=== PATIENT | female | born 1980 | race Asian ===

== ENCOUNTER 2024-11-25 11:49 | Emergency (ER) | payer OTHER, SELFPAY ==
[2024-11-25 11:54] VITALS: BMI 22.4
[2024-11-25 11:55] VITALS: BP 156/102; BP 176/86; PULSE 72; RESP 18; TEMP 37.2; O2SAT 98
--- NOTE | 2024-11-25 11:57 | EKG_ITS ---
[facility] Test Date: 2024-11-25 Pat Name: DANE DOBSON Department: Room: - Gender: Female Procurement Consultant: : 1980 Requested By: Nicolas Forde (LEILA) Order Number: [id number] Reading MD: Nicolas Forde (ADVERTISING ANALYST) Measurements Intervals [place] Rate: 77 P: 48 AL: 209 QRS: 27 QRSD: 89 T: 9 QT: 383 QTc: 435 Interpretive Statements SINUS RHYTHM NONSPECIFIC T-WAVE ABNORMALITY No previous ECG available for comparison /store/S0/[id number]
--- NOTE | 2024-11-25 11:57 | XR_ITS ---
Examination: CT brain head without contrast. 2-D sagittal coronal reconstructions Date and time of exam:November 25, 9024, 1249 hours INDICATIONS: Headache dizziness today CTDI: vol (mGy):49.5 DLP: (mGycm):972 Technique: Multiple CT axial sections of the brain have been obtained, 5 mm slice thickness. Contrast has not been administered. 2-D sagittal, coronal reconstructions have been obtained Low dose protocols were performed. One or more of the following dose reduction techniques were used; automated exposure control, adjustment of the mA and/or KV according to patient size, use of iterative reconstruction technique. Findings: No significant ventricular enlargement. Intra-axial or extra-axial hemorrhage density is not seen. No mass effect or midline shift Basal cisterns are not remarkable. Fourth ventricle is midline. Cranial vault intact. Impression: Negative for acute hemorrhage, mass effect or midline shift Advise clinical correlation follow up accordingly
--- NOTE | 2024-11-25 11:57 | XR_ITS ---
Examination: PA lateral chest 2 views TECHNIQUE: Upright PA and lateral chest 2 views Date and time: November 25, 2024: 39 hours INDICATIONS: Dizziness weakness shortness of breath today. FINDINGS: Mild enlargement left ventricle. No pneumonia or pulmonary edema. The osseous structures are intact IMPRESSION: No pneumonia or pulmonary edema
--- NOTE | 2024-11-25 12:03 | PD.EDRME ---
Rapid Medical Screening Exam RME Arrival date/time: 11/25/24 11:49 44-year-old female presents to the emergency department today for complaints of dizziness Chief Complaint: Dizziness Vital signs: Vital Signs Temperature 98.9 F 11/25/24 11:55 Pulse Rate 72 11/25/24 11:55 Respiratory Rate 18 11/25/24 11:55 Blood Pressure 176/86 H 11/25/24 11:55 Pulse Oximetry (%) 98 11/25/24 11:55 Oxygen Delivery Method Room Air 11/25/24 11:55
[2024-11-25] MEDS: MECLIZINE HCL 25 MG TABLET 50 MG PO (12:08)
[2024-11-25 12:21] LABS: Basophils # (Auto) 0.1 Thou/mm3 (0.0-0.2); Basophils % (Auto) 1 % (0-2.5); Eosinophils # (Auto) 0.3 Thou/mm3 (0.0-0.5); Eosinophils % (Auto) 4 % (0-10); Hematocrit 38.0 % (36.0-46.0); Hemoglobin 11.7 g/dL (12.0-16.0); Immature Granulocytes Auto 0.02 Thou/mm3 (0.00-0.00); Lymphocytes # (Auto) 2.7 Thou/mm3 (1.0-4.8); Lymphocytes % (Auto) 41 % (10-50); Mean Corpuscular HGB Conc 30.8 g/dl (31.0-37.0); Mean Corpuscular Hemoglobin 24.3 pg (25.0-35.0); Mean Corpuscular Volume 79 fL (80-100); Monocytes # (Auto) 0.7 Thou/mm3 (0.0-0.8); Monocytes % (Auto) 10 % (0-12); Neutrophils # (Auto) 3.0 Thou/mm3 (1.8-7.7); Neutrophils % (Auto) 45 % (37-80); Nucleated Red Blood Cell # 0.00 Thou/mm3 (0.00-0.00); Nucleated Red Blood Cell % 0 /100 WBC (0); Platelet Count 329 Thou/mm3 (140-440); RDW Standard Deviation 44.2 fL (36.4-46.3); Red Blood Count 4.81 Miln/mm3 (4.00-5.20); White Blood Count 6.7 Thou/mm3 (3.6-11.0)
[2024-11-25 12:50] LABS: HCG Qualitative,Urine Negative
[2024-11-25 13:11] LABS: Alanine Aminotransferase 13 U/L (10-49); Albumin, Serum 4.7 gm/dL (3.5-5.0); Albumin/Globulin Ratio 1.6 (1.2-2.2); Alkaline Phosphatase 69 U/L (46-116); Anion Gap 9 (7-16); Aspartate Amino Transferase 17 U/L (0-34); BUN/Creatinine Ratio 14 Ratio (12-20); Bilirubin,Total 0.5 mg/dL (0.3-1.2); Blood Urea Nitrogen 10 mg/dL (9-23); Calcium 9.0 mg/dL (8.3-10.6); Calcium (Corrected) 9.0 mg/dL (8.5-10.1); Carbon Dioxide 26.6 mMol/L (20.0-31.0); Chloride 106 mMol/L (98-107); Creatinine (Component) 0.7 mg/dL (0.6-1.3); Estimated Creatinine Clearance 98.0 mL/min (>60); Globulin 2.9 gm/dL (2.3-3.5); Glucose 88 mg/dL (74-106); Osmolality,Calculated 281 (275-295); Potassium 3.7 mMol/L (3.4-5.1); Sodium 142 mMol/L (136-145); Total Protein 7.6 gm/dL (5.7-8.2); Troponin I < 0.002 ng/mL (0.0-0.045); eGFR > 60 See Note
[2024-11-25 14:56] VITALS: BP 158/95; PULSE 90; RESP 19; TEMP 36.8; O2SAT 100
--- NOTE | 2024-11-25 15:23 | EDNOTE_ITS ---
ED Dizzyness RME/HPI General Chief Complaint: Dizziness Stated Complaint: DIZZY AND NAUSEA Time Seen by Provider: 11/25/24 14:19 Arrival date/time: 11/25/24 11:49 RME / HPI RME / HPI Narrative: 44-year-old female presents to the emergency department today for complaints of dizziness. Onset of symptoms since early this morning as sudden onset of dizziness, described as everything spinning, severity moderate. Denies any headache. Denies any focal neurologic deficit. Denies any earache denies any fever denies any trauma to the head no medications taken prior to ER visit Related Data Home Medications ?Medication ?Instructions ?Recorded ?Confirmed vit no.95-ferrous 1 tab PO QDAY 06/17/19 100 10/13 fumarate 28 mg-folic acid 800 mcg tablet () Previous Rx's ?Medication ?Instructions ?Recorded ibuprofen 600 mg tablet 600 mg PO Q6H PRN pain #30 t abs 02/02/20 meclizine 50 mg tablet 50 mg PO BID PRN dizziness # 30 tabs 11/25/24 Allergies Allergy/AdvReac Type Severity Reaction Status Date / Time No Known Allergies Allergy Verified 11/25/24 11:51 Review of Systems Review of Systems Narrative Review of Systems: Review of system reviewed and within normal limits except mentioned in HPI ED Exam Narrative Physical exam: VITAL SIGNS: Reviewed. GENERAL APPEARANCE: Alert and interactive, follows commands, no acute distress, HEAD AND FACE: Non-traumatic. ENT: PERRL, pink conjunctivitis, eyelid no trauma, Mucous membrane moist. Bilateral tympanic membrane are nonbulging nontender NECK: Supple, nontender, no nuchal rigidity. CHEST: No tenderness, no crepitus, no paradoxical movement, no retractions. LUNGS: Clear, well ventilated, symmetric, no rales, no wheezing, no ronchi, no stridor, good breath sounds bilaterally. HEART: Regular rate, regular rhythm, no murmur, no gallops. ABDOMEN: Soft, positive bowel sounds, nondistended, no guarding, nontender, no rebound, no masses, RECTAL: Deferred. GENITAL: Deferred. NEUROLOGICAL: Gross motor function intact sensory function intact, Appropriate for age. MUSCULOSKELETAL: low back nontender, full range of motion. EXTREMITIES: Nontender, full range of motion. SKIN: Color pink, dry, no rash, no lacerations, no abrasions, no contusions. LYMPHATICS: Deferred. Course Quality Measures none Orders Category Date Time Status EKG (ED ONLY) *Do not use* NOW Care 11/25/24 11:[address] head/brain wo con Stat Exams 11/25/24 11:57 Completed EKG (ED Only) Stat Exams 11/25/24 11:57 Ordered XR chest 2V Stat Exams 11/25/24 11:57 Completed CBC Stat Lab 11/25/24 12:07 Completed Comprehensive Metabolic Panel Stat Lab 11/25/24 12:07 Completed HCG Qualitative,Urine Stat Lab 11/25/24 12:15 Completed Troponin I Stat Lab 11/25/24 12:07 Completed Meclizine HCl [Antivert] Med 11/25/24 11:57 Discontinued 50 mg PO X1 ONE Meclizine HCl [Antivert] Med 11/25/24 15:21 Discontinued 50 mg PO X1 ONE Vital Signs Vital signs: Vital Signs Temperature 98.9 F 11/25/24 11:55 Pulse Rate 72 11/25/24 11:55 Respiratory Rate 18 11/25/24 11:55 Blood Pressure 176/86 H 11/25/24 11:55 Pulse Oximetry (%) 98 11/25/24 11:55 Oxygen Delivery Method Room Air 11/25/24 11:[address] [facility] Narrative [facility] Narrative:: 44-year-old female presents to the emergency department today for complaints of dizziness. Onset of symptoms since early this morning as sudden onset of dizziness, described as everything spinning, severity moderate. Denies any headache. Denies any focal neurologic deficit. Denies any earache denies any fever denies any trauma to the head no medications taken prior to ER visit Patient's workup today including CT scan of the head came back normal. Chest x- ray also came back unremarkable Patient received meclizine with no recurrence of dizziness. Patient data External records reviewed:: None Clinical information provided by:: patient Social determinants that could affect healthcare access:: none Patient has the following chronic illnesses:: None How is presenting disease/condition affected by chronic disease/condition?: no chronic disease Evaluation data The following diagnostics were reviewed and interpreted by me:: lab results and radiology exam(s) Lab and/or radiology exams considered but not ordered:: None Interpretation Summary: See results [facility] EKG showed sinus rhythm, ventricular rate of 77 bpm, no ST segment elevation or depression of the Medications / Prescriptions Medications or Prescriptions considered but not ordered:: She none Medication administrations:: Medication Administration History Discontinued Medications Meclizine HCl (Meclizine Hcl 25 Mg Tablet) 50 mg PO X1 ONE Stop: 11/25/24 11:58 Last Admin: 11/25/24 12:08 Dose: 50 mg Documented By: RODO Meclizine HCl (Meclizine Hcl 25 Mg Tablet) 50 mg PO X1 ONE Stop: 11/25/24 15:22 Meclizine, still having dizziness patient was given Valium with significant improvement of symptoms Consultations Consultation(s) initiated? (list below): No Diagnosis Dizziness Differential Diagnosis: adverse reaction to drug and benign paroxysmal positional vertigo Most likely diagnosis given after review of the tests above:: Dizziness, vertigo Admission Indicated Admission indicated?: not indicated Explain why admission is indicated or not indicated:: Stable Admission Request Was there a request for admission?: No Disposition Plan Disposition Plan: Discharge Discharge Attestation Discharge Attestation: The patient was given an opportunity to ask questions and understood the discharge instructions. Discharge instructions specifically effects, indications for sooner follow up or return to the emergency department, and the expected course of current diagnosis. Patient condition: Stable Discharge Plan Plan Patient Disposition: HOME (Self Care) Discharge Disposition comment: Stable Prescriptions/Referrals Prescriptions/Med Rec: New meclizine 50 mg tablet 50 mg PO BID PRN (Reason: dizziness) Qty: 30 0RF No Action PNV no.95-ferrous fumarate-FA [] 28 mg iron- 800 mcg Tablet 1 tab PO QDAY ibuprofen 600 mg tablet 600 mg PO Q6H PRN (Reason: pain) Qty: 30 0RF Referrals: Pk Parisi MD [Primary Care Provider] - In 1 week Problem List Clinical Impression: Dizziness Patient/Caregiver Discharge Instructions Discharge Activity: activity as tolerated Education Materials: ED Dizziness, Uncertain Cause Additional Instructions: Thank you for the opportunity for serving you today. You are stable for discharged . You are advised to: Follow-up with your PCP in 1 to 2 days Return to ED for worsening of symptoms Increase oral fluids Take medication as prescribed Print Language: Kiswahili Stand Alone Forms: Malena Award Info., Patient Portal Info Letter GEOFFREY/CATARINA Supervising Physician JANET Supervising Physician: MD Jarett
[2024-11-25] MEDS: DIAZEPAM 5 MG TABLET PO (15:37)
== END 2024-11-25 15:40 | disposition home or self-care (01) ==
PROVIDERS: Emergency Provider Nurse Practitioner Primary Care; PCP Family Medicine
DX: R42 Dizziness and giddiness (principal); R51.9 Headache, unspecified; R53.1 Weakness; R06.02 Shortness of breath; R94.31 Abnormal electrocardiogram [ECG] [EKG]
CPT/HCPCS: 36415; 70450; 71046; 80053; 81025; 84484; 85025; 93005; 99283; A9270

== ENCOUNTER → 2025-01-30 | Outpatient (CLI) | payer OTHER, SELFPAY ==
--- NOTE | 2025-01-30 16:30 | XR_ITS ---
Examination: Screening digital mammography, bilateral Computer aided detection 3-D breast Tomosynthesis, bilateral Date and time of exam: January 30, 2025, 1633 hours, compared to mammograms dating to December 20, 2018 Indication: Screening, strong family history, sister, breast cancer Technique: Nonmagnified MLO, CC views of the breasts to been obtained, reconstructed from 3-D Tomosynthesis images. R2 computer aided detection program utilized for evaluation of suspicious masses and/or abnormal calcifications. 3-D Tomosynthesis images obtained. Findings: The breasts are heterogeneously dense, which may obscure small masses 15 mm nodule lower inner left breast posterior depth Impression: BI-RADS Category 0: Incomplete: Need additional imaging evaluation Recommend follow-up spot tomographic views of 15 mm nodule lower inner left breast posterior depth as well as bilateral breast sonography to correlate to work-up.
== END | disposition home or self-care (01) ==
LOC: CDIM 16:16
PROVIDERS: Referring Provider Family Medicine; Visit Provider Family Medicine
DX: Z12.31 Encounter for screening mammogram for malignant neoplasm of breast (principal); N63.24 Unspecified lump in the left breast, lower inner quadrant; R92.8 Other abnormal and inconclusive findings on diagnostic imaging of breast
CPT/HCPCS: 77063; 77067

== ENCOUNTER 2025-02-21 08:39 | Outpatient (AMB) | payer OTHER, MEDICAID, SELFPAY ==
--- NOTE | 2025-02-21 08:49 | GYNCLNT_ITS ---
Vital Signs 02/21/25 08:56 Height 1.57 m Height Method Stated Weight 62.369 kg Weight Measurement Method Standing Scale BMI 25.1 BP 132/83 H Blood Pressure Source Automatic Cuff Blood Pressure Location Right Upper Arm Position Sitting Respiration 18 Pulse 84 Pulse Source Monitor Temp 98.1 F Temp Source Temporal Artery Scan Pulse Oximetry (%) 98 Oxygen Delivery Method Room Air Allergies/Home Meds Allergies & Medications Allergies No Known Allergies Allergy (Verified 02/21/25 09:00) Intake Visit Data Collection New Patient or Established: Established Patient (seen at [facility] within 3 years) Reason for Visit:: REFERRAL PELVIC PAIN Seen by Clinical Staff ONLY (RN/MA): No Faceter Required: No Do You Feel Safe at Home: Yes Authorities Contacted: N/A PCP or OBGYN visit in last 3 months: No Hx Now: No Are you currently on any form of Control: No Last menstrual period: 02/17/25 Pain Present Currently: No Pain Scale Used: Jacobsen-Walker/Numerical Pain scale:: 0 Smoking Status Smoking Status: Never smoker Immunizations Flu Vaccine in the Last 12 Months: No Flu Vaccine Exclusion Criteria: No Exclusion Criteria 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 1. Little interest or pleasure in doing things: not at all 2. Feeling down, depressed, or hopeless: not at all Total score: 0 PHQ-9 3. Trouble falling or staying asleep, or sleeping too much: Not at all 4. Feeling tired or having little energy: Not at all 5. Poor appetite or overeating: Not at all 6. Feeling bad about yourself - or that you are a failure or have let yourself or your family down: Not at all 7. Trouble concentrating on things, such as reading the newspaper or watching television: Not at all 8. Moving or speaking so slowly that other people could have noticed? - Or the opposite - being so fidgety or restless that you have been moving around a lot more than usual: not at all 9. Thoughts that you would be better off or of hurting yourself in some way: Not at all Total score: 0 If you checked off any problems, how difficult have these problems made it for you to do your work, take care of things at home, or get along with other people?: not difficult at all Source: Developed by Drs. Walker Flores, Genesis Herring, Adalid Salmon and colleagues, with an educational milady from [employer]. Depression screen completed yes Social History Living Situation History Marital Status: Lives With: Family Housing: House Tobacco History Smoking Status: Never smoker Second Hand Smoke Exposure: No Alcohol History Alcohol Intake: Never Domestic Abuse History Do You Feel Safe at Home: Yes History of Present Illness HPI Narrative Chief Complaint Pelvic pain on referral from PCP, sudden severe pelvic pain during menstruation for the past 3 months lasting 2-3 days followed by intermittent pain, irregular periods sometimes occurring every 2 weeks Marina Busby is a 44-year-old presenting on referral from her primary care provider for pelvic pain. She was last seen at her PCP's office on 12-11-2024 for a yearly follow-up after a fainting episode. The patient reports that she previously had normal menstruation, but for the past 3 months, she has experienced sudden, severe pelvic pain during her period. This pain lasts 2-3 days and is followed by intermittent pain. Her periods have also become irregular, sometimes occurring every 2 weeks instead of her previous normal cycle. Medical History: - Fainting episode requiring yearly follow-up, last seen at PCP on 12-11-2024 Obstetric History: - GPAL: A0 L4 Diagnostic Test Results and Labs: - Pelvic ultrasound (November 2024, [facility]): Uterus enlarged, measuring 9.9 cm x 6.1 cm x 8.3 cm, posterior leiomyoma 2.2 cm, endometrial stripe 3 mm, right ovary normal with 0.8 cm simple cyst, left ovary 3 cm, no other cystic structures Exam General General Appearance: alert, in no apparent distress and healthy appearing Head Head exam: atraumatic Neck Neck exam: Present normal inspection and trachea midline Chest Chest inspection: Present normal inspection and symmetric chest wall rise External exam: Present normal external exam; Absent tenderness Neuro Neurological exam: Present oriented X3 Psych Psychiatric exam: Present normal affect and normal mood Office Procedures [facility] LOC & Office Proc's Nursing/Assessment Patient Status: Established Patient OB Clinic Nursing Assessment: Medication Reconciliation, Update PMH in EMR and Vital Signs OB Clinic Coordination of Care: Complex Care and Chronic Disease 1-5, Complex Care/Chronic Disease 5 or more, Education Complex Pt/Fam, Consent,records obtained, informed consent, Lab and Imaging orders, Results/Orders obtained and Staff clarify orders Established Patient Charge Established Patient Point Assignment: 145 Established Patient Point Charge: EP Level 4 (120-155) Assessment & Plan Diagnosis / Problem List (1) Intramural leiomyoma of uterus: Status: Acute Plan Pelvic pain with irregular menstruation Assessment: Patient presents with a 3-month history of sudden, severe pelvic pain during menstruation lasting 2-3 days followed by intermittent pain, along with irregular periods now occurring every 2 weeks instead of her previously normal menstrual cycle. Ultrasound from November 2024 revealed an enlarged uterus measuring 9.9 cm x 6.1 cm x 8.3 cm with a 2.2 cm posterior leiomyoma. The endometrial stripe measures 3 mm, right ovary is normal with a 0.8 cm simple cyst, and left ovary measures 3 cm with no other cystic structures. The fibroid is likely causing her symptoms. Plan: - Initiate Lupron (leuprolide for depot) injections, one injection per month for 6 months - Administer first Lupron injection today - Patient informed of potential side effects including hot flushes and sweating, which should subside after 10 days - Repeat ultrasound after 6 months of treatment to assess fibroid size - Follow-up visit in one month - Alternative treatment options discussed include high-dose progesterone or laparoscopic surgery to burn the fibroid, with hysterectomy as consideration if other treatments fail, though not deemed necessary at this point due to small fibroid size
[2025-02-21 08:56] VITALS: BP 132/83; PULSE 84; RESP 18; TEMP 36.7; O2SAT 98; BMI 25.1
== END 2025-02-21 09:45 | disposition home or self-care (01) ==
PROVIDERS: PCP Family Medicine; Referring Provider Family Medicine; Supervising Provider Obstetrics & Gynecology; Visit Provider Obstetrics & Gynecology
DX: D25.1 Intramural leiomyoma of uterus (principal)
CPT/HCPCS: 99214; G0463

== ENCOUNTER → 2025-03-14 | Outpatient (CLI) | payer OTHER, MEDICAID, SELFPAY ==
--- NOTE | 2025-03-14 08:45 | XR_ITS ---
Examination: Breast ultrasound complete, bilateral Date and time of exam: March 14, 2025, 0906 hours INDICATIONS: Mammogram January 31, 2000 2515 mm nodule lower inner left breast posterior depth Technique: Real-time grayscale ultrasonographic imaging bilateral breasts, including all 4 quadrants as well as nipple retroareolar and axillary regions. Findings: Sonographic images right breast 4:00 cyst 7 x 6 mm 11:00 cyst 5 x 5 mm No solid nodules Sonographic images left breast 2:00 nodule lobular margins 7 x 7 mm 3:00 cyst 5 x 5 mm 8:00 nodule lobular margins 13 x 15 mm 9:00 cyst 5 x 5 mm 10:00 nodule lobular margins 12 x 13 mm 11:00 nodule indistinct margins 13 x 7 x 11 mm IMPRESSION: BI-RADS Category 4: Suspicious for malignancy Suspicious nodule left breast indistinct margins, 13 x 7 x 11 mm, biopsy is needed to exclude breast carcinoma, this mass is amenable to ultrasound-guided breast biopsy for diagnosis Also follow-up 6-month left breast sonography strongly recommended to document stability of numerous additional solid nodules described above
== END | disposition home or self-care (01) ==
LOC: CDIM 08:27
PROVIDERS: PCP Family Medicine; Referring Provider Family Medicine; Visit Provider Family Medicine
DX: N63.22 Unspecified lump in the left breast, upper inner quadrant (principal); N63.21 Unspecified lump in the left breast, upper outer quadrant; N63.24 Unspecified lump in the left breast, lower inner quadrant
CPT/HCPCS: 76641

== ENCOUNTER → 2025-03-15 | Outpatient (CLI) | payer OTHER, MEDICAID, SELFPAY ==
--- NOTE | 2025-03-15 10:15 | XR_ITS ---
Examination: Diagnostic digital mammography, unilateral, l left Computer aided detection 3-D breast Tomosynthesis, unilateral Date and time of exam: March 15, 2025, 1010 hours INDICATIONS: 15 mm circumscribed nodule lower inner left breast on mammogram January 30, 2025 Technique: Nonmagnified MLO, CC views of the le left breast have been obtained, reconstructed from 3-D Tomosynthesis images. R2 computer aided detection program utilized for evaluation of suspicious masses and/or abnormal calcifications. 3-D Tomosynthesis images obtained. Findings: The breast is heterogeneously dense, which may obscure small masses Nodule inner lower left breast circumscribed, 15 mm Impression: BI-RADS category 3: Probably benign findings For additional 6-month left mammogram follow-up is needed to document stability of nodule described above Please see the left breast sonogram report today indicating BI-RADS 4 suspicious nodule 11 o'clock position left breast requiring biopsy ultrasound-guided
== END | disposition home or self-care (01) ==
LOC: CDIM 09:54
PROVIDERS: Referring Provider Family Medicine; Visit Provider Family Medicine
DX: R92.332 Mammographic heterogeneous density, left breast (principal); N63.22 Unspecified lump in the left breast, upper inner quadrant
CPT/HCPCS: 77061; 77065; G0279